=== PATIENT | female | born 1945 ===

== ENCOUNTER 2016-12-31 09:35 | Day surgery (SDC) | payer MEDICARE, MEDICAID ==
[2016-12-31 10:05] VITALS: BMI 24.0
[2016-12-31 10:30] LABS: BASO % 0.3 % (0.0-2.0); EOS # 0.1 K/uL (0.0-0.7); EOS % 1.2 % (0.0-4.0); HEMATOCRIT 32.8 % (34.0-47.0); LYMPH # 1.3 K/uL (1.0-4.3); MEAN CELL VOLUME 77.8 fl (81.0-99.0); MEAN CORPUSCULAR HEMOGLOBIN 24.9 pg (27.0-31.0); MEAN CORPUSCULAR HGB CONC 32.1 g/dL (33.0-37.0); MEAN PLATELET VOLUME 7.8 fl (7.2-11.7); MONO # 0.8 K/uL (0.0-0.8); NEUT # 7.9 K/uL (1.8-7.0); NEUT % 77.5 % (50.0-75.0); RED CELL DISTRIBUTION WIDTH 16.1 % (11.5-14.5); WHITE BLOOD COUNT 10.2 K/uL (4.8-10.8)
[2016-12-31] MEDS ORDERED: Lactated Ringer's 1,000 ML IV ONE (10:30)
[2016-12-31 10:43] LABS: PARTIAL THROMBOPLASTIN TIME 29.6 Seconds (25.6-37.1)
[2016-12-31 11:04] VITALS: RESP 18
--- NOTE | 2016-12-31 12:50 | CP.SDSHP ---
Same Day Surgery H & P - History Proposed Procedure: US guided FNA of left parotid mass Pre-Op Diagnosis: left parotid mass - Allergies Allergies: Allergies No Known Allergies Allergy (Verified 12/31/16 10:04) - Physical Exam Vital Signs: Vital Signs 12/31/16 12/31/16 10:45 10:57 Temperature 97.5 F L Pulse Rate 64 64 Respiratory 18 Rate Blood Pressure 134/67 O2 Sat by Pulse 96 Oximetry Mental Status: Alert & Oriented x3 - Impression Impression: Pt with a 2.5 cm left parotid mass that is complex. Plan US guided FNA. Pt. Evaluated Today:Candidate for Anesthesia & Procedure: No Short Stay Discharge - Short Stay Discharge Admitting Diagnosis/Reason for Visit: LT PAROTID GLAND MASS Referrals: Jassi Laws MD [Primary Care Provider] -
--- NOTE | 2016-12-31 12:51 | PCM.SURG1 ---
Surgeon's Initial Post Op Note - Surgeon's Notes Surgeon: Jarocho Gale MD Cement Finisher: None Type of Anesthesia: Local Pre-Operative Diagnosis: Left parotid mass Operative Findings: US showed a 2.8 x 2.5 cm complex left parotid mass with internal echoes. Post-Operative Diagnosis: Left parotid mass Operation Performed: US guided aspiration of left parotid mass. Specimen/Specimens Removed: 5 cc of clear fluid Estimated Blood Loss: EBL {In ML}: 0 Blood Products Given: N/A Drains Used: No Drains Post-Op Condition: Good Date of Surgery/Procedure: 12/31/16 Time of Surgery/Procedure: 12:50
[2016-12-31 13:26] VITALS: O2SAT 100
[2016-12-31 14:34] VITALS: BP 135/61; PULSE 71; TEMP 97.5
--- NOTE | 2017-01-01 11:50 | VASCULAR ---
PROCEDURE: Date of procedure: 12/31/2016 Procedure: Ultrasound-guided FNA of left parotid mass. Ultrasound guidance for biopsy, [id number] HISTORY: Large left parotid mass TECHNIQUE: Following informed consent and procedure time-out, limited ultrasound patient's left neck demonstrates a large hypoechoic mass in left parotid gland measuring 5 centimeters. After the patient neck was prepped and draped in the usual sterile fashion and the skin anesthetized with lidocaine, ultrasound guided FNA was performed. A 25 g needle was advanced under US guidance into the mass. Yellow fluid was aspirated. A total of 5 cubic centimeters of fluid was removed and sent for routine histology. FNA was performed and 4 passes were made into the mass with 25 gauge needle. A total of 6 passes were made. A post biopsy ultrasound showed no hematoma IMPRESSION: Ultrasound-guided FNA of left parotid mass. The mass predominant cystic. The mass was aspirated completely and specimen was sent for routine histology.
== END 2016-12-31 14:30 | disposition home or self-care (01) ==
LOC: H.OPSURG 09:35
PROVIDERS: ATTEND Otolaryngology
DX: R22.1 Localized swelling, mass and lump, neck (principal)
CPT/HCPCS: 10022; 36415; 76942; 85025; 85610; 85730; 88104; 88305; J7120